=== PATIENT | female | born 1955 | race Caucasian/White ===

== ENCOUNTER 2020-09-01 10:00 | Outpatient (RCR) | payer MEDICARE, OTHER | END 2020-09-07 | LOC: OT 10:00 | PROVIDERS: ATTEND Plastic Surgery | DX: M18.0 Bilateral primary osteoarthritis of first carpometacarpal joints (principal); M25.542 Pain in joints of left hand; M25.541 Pain in joints of right hand | CPT/HCPCS: L3913 ×2 ==